=== PATIENT | male | born 1970 | race African-American/Black ===

== ENCOUNTER 2020-05-05 06:29 | Day surgery (SDC) | payer OTHER ==
[2020-05-02 09:20] LABS: HEMATOCRIT 43.1 % (37.9-51.0); HEMOGLOBIN 14.6 g/dL (13.5-17.0); MEAN CORPUSCULAR HEMOGLOBIN 29.2 pg (27.0-33.4); MEAN CORPUSCULAR HGB CONC 33.9 g/dL (32.0-36.0); MEAN CORPUSCULAR VOLUME 86 fl (80-97); PLATELET COUNT 238 10^3/uL (150-450); RED BLOOD COUNT 5.01 10^6/uL (4.35-5.55); RED CELL DISTRIBUTION WIDTH 15.3 % (11.5-14.0); WHITE BLOOD COUNT 8.2 10^3/uL (4.0-10.5)
[~2020-05-05 06:29] MED LIST: ACETAMINOPHEN 325 MG TABLET PO PRN; LACTATED RINGERS 1000 ML IV PRN; LIDOCAINE 0.5% INJ-PF (5 MG/ML) 50 ML SDV SUBCUT PRN
[2020-05-05] MEDS ORDERED: PROPOFOL INJ 200 MG/20 ML VIAL IV ONE ×2 (07:23→08:17)
--- NOTE | 2020-05-05 08:20 | Operative Report ---
Operative Report DATE OF SURGERY: 05/05/20 PREOPERATIVE DIAGNOSIS: Screening for colorectal carcinoma POSTOPERATIVE DIAGNOSIS: No evidence of colorectal carcinoma; polyp left colon; rare diverticulosis OPERATION: 1. Total colonoscopy to cecum. 2. Left colon polypectomy SURGEON: MAYANK MELGAR ANESTHESIA: LMAC TISSUE REMOVED OR ALTERED: 1 polyp left colon COMPLICATIONS: None ESTIMATED BLOOD LOSS: None INTRAOPERATIVE FINDINGS: See below PROCEDURE: Obtaining informed consent the patient was taken from the preoperative holding area to the main endoscopy suite where monitoring devices were attached to the patient. Plan and surgical timeout were conducted The patient was placed in the left lateral decubitus position with knees to chest. A perianal examination was performed. There was no visible or palpable anorectal pathology. Sphincter tone was felt to be normal. The flexible adult colonoscope was advanced through the anal rectal canal, all the way to the cecum. Visualization of the cecum was achieved by demonstration of the ileocecal valve, the appendiceal orifice and transillumination of the anterior abdominal wall. This was a very good study on a reasonably well-prepped bowel. There was a moderate amount of residual green liquid stool in the right colon requiring aspiration and flushing. T he colonoscope was withdrawn slowly and methodically checked and the mucosa carefully. There was no evidence of tumor, stricture, bleeding There were a few diverticulosis of the left colon. In the left colon approximately 5 cm from the anal verge was a small polyp, pedunculated, less than 3 mm, which was removed with a hot snare device. Fragment of polyp retrieved and sent as left colon polyp. Polypectomy site stable, showed no evidence of bleeding. Photo taken. The scope was slowly withdrawn through the anal rectal canal. Complete visualization of the rectum was achieved with photodocumentation. The scope was withdrawn to the patient's anus. The patient tolerated the procedure well and was taken to the recovery area in stable condition. Per surveillance guidelines, patient will be an appropriate candidate for follow-up colonoscopy in [3-5] years pending results of pathology report
--- NOTE | 2020-05-05 08:22 | Discharge Summary ---
Discharge Summary (SDC) - Discharge Final Diagnosis: 1. No evidence of colorectal carcinoma 2. Small left colonic polyp 3. Rare diverticulosis left colon Date of Surgery: 05/05/20 Discharge Date: 05/05/20 Condition: Good Treatment or Instructions: [facility] [address] [id number] POST ENDOSCOPY DISCHARGE INSTRUCTIONS 1. Diet: Start clear liquids that a regular diet as tolerated. 2. Resume all preoperative medications. All oral anticoagulants and aspirins can be resumed 24 hours after procedure. 3. If a polypectomy was performed some bleeding per rectum may occur. This should stop within 3 days. If not, please contact the office. 4. If you had a colonoscopy you may experience some bloating and delayed return of normal bowel function for several days, your regular bowel movement pattern should resume within a week. 5. Please contact [facility] at to make an appointment with Dr. Draper for 1 to 3 weeks following procedure. 6. If you have any questions or concerns regarding your care,treatment plan or follow up, please contact our office. 7. Per clinical guidelines we recommend you undergo a repeat colonoscopy in 3 to 5 years pending path report Discharge Diet: As Tolerated
[2020-05-05 08:43] VITALS: BP 133/96
== END 2020-05-05 09:15 | disposition home or self-care (01) ==
LOC: END 06:29
PROVIDERS: ATTEND Surgery
DX: Z12.11 Encounter for screening for malignant neoplasm of colon (principal); K57.30 Diverticulosis of large intestine without perforation or abscess without bleeding; D12.6 Benign neoplasm of colon, unspecified; E78.00 Pure hypercholesterolemia, unspecified; I10 Essential (primary) hypertension; Z79.899 Other long term (current) drug therapy; Z79.82 Long term (current) use of aspirin; Z03.818 Encounter for observation for suspected exposure to other biological agents ruled out
CPT/HCPCS: 45385; 36415; 85027; 87635; J2704; C9803